=== PATIENT | female | born 1980 | race Caucasian/White ===

== ENCOUNTER 2016-09-30 20:41 | Emergency (ER) | payer BC ==
[2016-09-30 20:56] VITALS: BP 128/96
--- NOTE | 2016-09-30 21:48 | UC ---
Respiratory Complaint HPI - HPI Summary HPI Summary: 6 DAYS OF COUGH, CONGESTION, ST. LUNGS FEEL TIGHT. NO FEVER, N/V/D. IS HERE VISITING FROM [place]. PCP IS IN [place]. - History of Current Complaint Chief Complaint: UCRespiratory Stated Complaint: COUGH Time Seen by Provider: 09/30/16 21:44 Hx Obtained From: Patient Hx Last Menstrual Period: 5 months Onset/Duration: Gradual Onset, Lasting Days, Still Present Timing: Constant Severity Initially: Moderate Severity Currently: Moderate Pain Intensity: 0 Pain Scale Used: 0-10 Numeric Character: Cough: Nonproductive Aggravating Factors: Nothing Alleviating Factors: Nothing Associated Signs And Symptoms: Positive: Pleuritic Chest Pain, URI, Nasal Congestion. Negative: Dyspnea, Fever, Chills, Wheezing, Hemoptysis, Dizziness, Calf Pain, Calf Swelling, Edema, Hoarseness - Allergies/Home Medications Allergies/Adverse Reactions: Allergies Allergy/AdvReac Type Severity Reaction Status Date / Time Amoxicillin Allergy Anaphylatic Verified 09/30/16 20:56 Shock Penicillins [PCN] Allergy Anaphylatic Verified 09/30/16 20:56 Shock Sulfa Antibiotics Allergy Hives Verified 09/30/16 20:56 Home Medications: Home Medications Acetaminophen [Acetaminophen Extra Stren] 500 mg PO DAILY PRN 09/30/16 [History Confirmed 09/30/16] PMH/Surg Hx/FS Hx/Imm Hx Respiratory History: Asthma - Surgical History Surgical History: Yes Surgery Procedure, Year, and Place: ectopic - Family History Known Family History: Positive: Hypertension - Social History Alcohol Use: None Substance Use Type: None Smoking Status (MU): Former Smoker Review of Systems Constitutional: Negative ENT: Sore Throat, Nasal Discharge Respiratory: Cough Cardiovascular: Negative Gastrointestinal: Negative All Other Systems Reviewed And Are Negative: Yes Physical Exam Triage Information Reviewed: Yes Appearance: Well-Appearing, No Pain Distress, Well-Nourished Vital Signs: Initial Vital Signs Temp 98.2 F 09/30/16 20:50 Pulse 105 09/30/16 20:50 Resp 16 09/30/16 20:50 BP 128/96 09/30/16 20:50 Pulse Ox 98 09/30/16 20:50 Vital Signs Reviewed: Yes Eyes: Positive: Conjunctiva Clear ENT: Positive: Hearing grossly normal, Pharynx normal, TMs normal Neck: Positive: Supple, Nontender, No Lymphadenopathy Respiratory Exam: Normal Cardiovascular: Positive: Tachycardia Abdomen Description: Positive: Soft Musculoskeletal: Positive: No Edema Neurological: Positive: Alert Psychological: Positive: Normal Response To Family, Age Appropriate Behavior Skin: Negative: rashes UC Diagnostic Evaluation - Laboratory O2 Sat by Pulse Oximetry: 98 Respiratory Course/Dx - Differential Dx/Diagnosis Provider Diagnoses: ACUTE URI Discharge - Discharge Plan Condition: Stable Disposition: HOME Prescriptions: Albuterol HFA INHALER* [Ventolin HFA Inhaler*] 2 puff INH Q4H PRN #1 mdi PRN Reason: Shortness Of Breath Patient Education Materials: Upper Respiratory Infection (ED) Additional Instructions: YOU LIKELY HAVE A VIRAL RESPIRATORY INFECTION THAT WILL RESOLVE WITH TIME. OKAY TO TAKE A DAILY ANTIHISTAMINE TO COVER FOR ANY ALLERGIC COMPONENT. WILL GIVE ALBUTEROL WELL THIS MAY HELP OPEN UP YOUR AIRWAYS AND HELP WITH YOUR COUGH AND FEELING OF TIGHTNESS. SEEK FOLLOW-UP HERE IF YOU ARE NOT IMPROVING EXPECTED OVER THE NEXT 1-2 WEEKS.
== END 2016-09-30 22:28 | disposition home or self-care (01) ==
LOC: UCEAST 20:41
DX: J06.9 Acute upper respiratory infection, unspecified (principal); J45.909 Unspecified asthma, uncomplicated; Z87.891 Personal history of nicotine dependence
CPT/HCPCS: 99202; G0463

== ENCOUNTER 2016-10-04 13:34 | Emergency (ER) | payer BC ==
[2016-10-04 13:53] VITALS: BP 139/87
--- NOTE | 2016-10-04 18:30 | UC ---
monse Velasquez Timothy, scribed for Edith Brian DO on 10/04/16 at 1500 . FLU HPI - HPI Summary HPI Summary: Jenae Soni is a 36 yo female presenting to [facility] S/P being seen 09/30/16 and Dx with viral illness, here today with 7/10 sore throat since yesterday, though her cough which lasted a week is largely resolved. She also notes some rhinorrhea. She states it is painful to swallow, but has no problems swallowing her saliva. She is concerned for strep. She states that she is susceptible to strep throat. She denies CP, SOB, fever, chills. She is accompanied by her 2 children. Her MHx includes asthma, gestational DM, ectopic , former tobacco use. - History of Current Complaint Chief Complaint: UCGeneralIllness Stated Complaint: SORE THROAT Time Seen by Provider: 10/04/16 14:47 Hx Obtained From: Patient Hx Last Menstrual Period: 5 months Onset/Duration: Sudden Onset, Lasting Days, Still Present Severity Currently: Moderate Severity Initially: Moderate Pain Intensity: 7 Pain Scale Used: 0-10 Numeric Associated Signs & Symptoms: Positive: Cough, Sore Throat, Nasal Congestion. Negative: Fever - Allergy/Home Medications Allergies/Adverse Reactions: Allergies Allergy/AdvReac Type Severity Reaction Status Date / Time Amoxicillin Allergy Anaphylatic Verified 09/30/16 20:56 Shock Penicillins [PCN] Allergy Anaphylatic Verified 09/30/16 20:56 Shock Sulfa Antibiotics Allergy Hives Verified 09/30/16 20:56 PMH/Surg Hx/FS Hx/Imm Hx - Additional Past Medical History Additional PMH: gestational dm Respiratory History: Asthma - Surgical History Surgical History: Yes Surgery Procedure, Year, and Place: ectopic - Family History Known Family History: Positive: Hypertension Negative: Cardiac Disease, Diabetes - Social History Alcohol Use: None Substance Use Type: None Smoking Status (MU): Former Smoker Review of Systems Constitutional: Negative Skin: Negative Eyes: Negative ENT: Sore Throat, Nasal Discharge Respiratory: Cough - resolved Cardiovascular: Negative Gastrointestinal: Negative Genitourinary: Negative Motor: Negative Neurovascular: Negative Musculoskeletal: Negative Neurological: Negative Psychological: Negative All Other Systems Reviewed And Are Negative: Yes Physical Exam Triage Information Reviewed: Yes Appearance: Well-Appearing, No Pain Distress, Well-Nourished Vital Signs: Initial Vital Signs Temp 98 F 07/27/17 13:51 Pulse 96 10/04/16 13:51 Resp 20 10/04/16 13:51 BP 139/87 10/04/16 13:51 Pulse Ox 99 10/04/16 13:51 Vital Signs Reviewed: Yes Eyes: Positive: Conjunctiva Clear. Negative: Discharge ENT: Positive: Hearing grossly normal, Pharyngeal erythema, TMs normal, Tonsillar swelling, Other: - pale nasal mucosa. Negative: Tonsillar exudate, Trismus, Muffled/hoarse voice Neck exam: Normal Neck: Positive: Supple Respiratory: Positive: Lungs clear, Normal breath sounds, No respiratory distress Cardiovascular: Positive: RRR, No Murmur Musculoskeletal Exam: Normal Neurological: Positive: Alert, Muscle Tone Normal Psychological Exam: Normal Psychological: Positive: Age Appropriate Behavior Skin Exam: Normal Skin: Positive: Other - warm, dry, normal color. Pt has allergic shiners.. Negative: rashes Re-Evaluation - Re-Evaluation First Eval Re-Evaluation Time: 15:37 Change: Unchanged Comment: Discussed strep test results with Pt, as well as course of Tx. Flu Course/Dx - Course Course Of Treatment: Jenae Soni is a 36 yo female presenting to [facility] S/P being seen 09/30/16 and Dx with viral illness, here today with 7/10 sore throat which has not improved, though she notes her cough of 1 week has improved. Pt medication list reviewed this visit. Her Group A Rapid strep test is negative. After clinical examination and review of her lab study, she will be discharged home with sore thoat and allergies with appropriate instructions and follow up. - Differential Dx/Diagnosis Differential Diagnosis/HQI/PQRI: Other - viral infection Provider Diagnoses: sore throat, allergies Discharge - Discharge Plan Condition: Stable Disposition: HOME Patient Education Materials: Allergies (ED), Pharyngitis (ED) Referrals: Non Staff,Doctor [Primary Care Provider] - If Needed Additional Instructions: TRY USING THE NETTI POT IN THE MORNINGS DISCUSSED. YOU MUST ALWAYS USE CLEAN WATER. Please follow up with your primary care physician regarding your visit to urgent care today. Return to urgent care or the emergency department with any new or recurring symptoms The documentation as recorded by the monse bah Timothy accurately reflects the service I personally performed and the decisions made by , Edith Brian DO.
== END 2016-10-04 16:01 | disposition home or self-care (01) ==
LOC: UCEAST 13:34
DX: J45.909 Unspecified asthma, uncomplicated (principal); Z87.891 Personal history of nicotine dependence; J02.9 Acute pharyngitis, unspecified; T78.40XA Allergy, unspecified, initial encounter
CPT/HCPCS: 87651; 99211; G0463